=== PATIENT | male | born 1985 | race Caucasian/White ===

== ENCOUNTER 2020-10-03 11:04 | Inpatient (IN) | payer OTHER ==
[2020-10-03] MEDS ORDERED: ONDANSETRON *ODT* 4 MG TABLET SL PRN (14:25)
[2020-10-03] MEDS ORDERED: MAGNESIUM HYDROX 2400MG/30ML ORAL SUSPENSION 30 ML CUP PO PRN (14:25)
[2020-10-03] MEDS ORDERED: ACETAMINOPHEN 325 MG TABLET (FP) PO PRN ×2 (14:25)
[2020-10-03] MEDS ORDERED: MAG HYDROX/AL HYDROX/SIMETH 30 ML UNIT-DOSE CUP PO PRN (14:25)
[2020-10-03] MEDS ORDERED: MAGNESIUM CITRATE 300 ML BOTTLE PO PRN (14:25)
[2020-10-03] MEDS ORDERED: cloNIDine HCL 0.1 MG TABLET PO PRN (14:25)
[2020-10-03] MEDS ORDERED: MENTHOL/PHENOL 1 EACH UD MM PRN (14:25)
[2020-10-03] MEDS ORDERED: BISMUTH SUBSALICYLATE 524 MG/30 ML UD PO PRN (14:25)
[2020-10-03 14:35] VITALS: BMI 24.2
[2020-10-03] MEDS ORDERED: METHADONE HCL 10 MG TABLET (FOR DETOX USE ONLY) PO ONE (16:00)
[2020-10-03] MEDS: IBUPROFEN 400 MG TABLET (FP) PO PRN (17:34)
[2020-10-03] MEDS: diazePAM 5 MG TABLET PO SCH ×2 (18:04→23:34)
[2020-10-03] MEDS: hydrOXYzine PAMOATE 25 MG CAPSULE (FP) PO SCH ×2 (18:05→23:35)
[2020-10-03] MEDS: diazePAM 5 MG TABLET PO PRN (20:00)
[2020-10-03] MEDS ORDERED: MELATONIN 5 MG TABLETS PO SCH (22:00)
[2020-10-03] MEDS: MELATONIN 5 MG TABLETS PO SCH (23:31)
[2020-10-03] MEDS: THIAMINE HCL 100 MG TABLET (FP) PO SCH (23:35)
[2020-10-04] MEDS: diazePAM 5 MG TABLET PO SCH ×4 (06:15→22:53)
[2020-10-04] MEDS: hydrOXYzine PAMOATE 25 MG CAPSULE (FP) PO SCH ×5 (06:15→21:58)
[2020-10-04] MEDS ORDERED: METHADONE HCL 10 MG TABLET (FOR DETOX USE ONLY) ONE (09:46)
[2020-10-04] MEDS ORDERED: METHADONE HCL 5 MG TABLET (FOR DETOX USE ONLY) ONE (09:46)
[2020-10-04] MEDS ORDERED: PRENATAL VITAMINS W/ FOLIC ACID TABLET (FP) PO SCH (10:00)
[2020-10-04] MEDS ORDERED: METHADONE (DETOX) 20 MG, METHADONE (DETOX) 5 MG PO ONE (10:00)
[2020-10-04 10:53] LABS: HEMATOCRIT 36.3 % (35.4-49); HEMOGLOBIN 12.4 GM/dL (11.7-16.9); MCH 29.6 pg (25.7-33.7); MCHC 34.3 g/dl (32.0-35.9); MEAN CELL VOLUME 86.3 fl (80-96); MEAN PLT VOLUME 7.2 fl (7.5-11.1); PLATELET COUNT 185 K/MM3 (134-434); POTASSIUM 4.3 mmol/L (3.5-5.1); RDW 14.1 % (11.9-15.9)
[2020-10-04 10:59] LABS: CALCIUM 8.8 mg/dL (8.5-10.1)
[2020-10-04 11:00] LABS: ALBUMIN 3.2 g/dl (3.4-5.0); BLOOD UREA NITROGEN 22.6 mg/dL (7-18)
[2020-10-04 11:02] LABS: CREATININE 0.9 mg/dL (0.55-1.3)
[2020-10-04 11:04] LABS: TOT PROT 6.5 g/dl (6.4-8.2)
[2020-10-04 11:06] LABS: BILIRUBIN,TOTAL 0.8 mg/dL (0.2-1)
[2020-10-04] MEDS: METHOCARBAMOL 500 MG TABLET PO PRN ×2 (14:40→22:49)
[2020-10-04] MEDS: diazePAM 5 MG TABLET PO PRN ×2 (14:40→22:50)
[2020-10-04] MEDS: IBUPROFEN 400 MG TABLET (FP) PO PRN (18:41)
[2020-10-04] MEDS: THIAMINE HCL 100 MG TABLET (FP) PO SCH (21:58)
[2020-10-04] MEDS: MELATONIN 5 MG TABLETS PO SCH (21:59)
[2020-10-05] MEDS: diazePAM 5 MG TABLET PO PRN (02:50)
[2020-10-05] MEDS: IBUPROFEN 400 MG TABLET (FP) PO PRN (04:21)
[2020-10-05] MEDS: METHOCARBAMOL 500 MG TABLET PO PRN (04:21)
[2020-10-05] MEDS ORDERED: diazePAM 5 MG TABLET PO SCH (06:00)
[2020-10-05] MEDS: hydrOXYzine PAMOATE 25 MG CAPSULE (FP) PO SCH (06:12)
[2020-10-05 07:10] VITALS: BP 102/58; PULSE 54; TEMP 97.6
[2020-10-05] MEDS ORDERED: METHADONE HCL 10 MG TABLET (FOR DETOX USE ONLY) PO ONE (10:00)
[2020-10-05] MEDS ORDERED: FLU VACCINE (FLULAVAL) PF 60 MCG/0.5 ML SYRINGE 2020-2021 IM ONE (12:00)
[2020-10-06] MEDS ORDERED: diazePAM 5 MG TABLET PO SCH (06:00)
[2020-10-06] MEDS ORDERED: METHADONE (DETOX) 10 MG, METHADONE (DETOX) 5 MG PO ONE (10:00)
[2020-10-07] MEDS ORDERED: diazePAM 5 MG TABLET PO ONE (06:00)
[2020-10-07] MEDS ORDERED: METHADONE HCL 10 MG TABLET (FOR DETOX USE ONLY) PO ONE (10:00)
[2020-10-08] MEDS ORDERED: METHADONE HCL 5 MG TABLET (FOR DETOX USE ONLY) PO ONE (06:00)
== END 2020-10-05 09:52 | disposition left against medical advice (07) | DRG 770 ==
LOC: YASAS 11:04 → Y6N 14:35
PROVIDERS: ADMIT Allergy & Immunology; ATTEND Allergy & Immunology
PROC: HZ2ZZZZ Detoxification Services for Substance Abuse Treatment (ICD-10-PCS; principal; 2020-10-03)
DX: F11.23 Opioid dependence with withdrawal (principal); F10.230 Alcohol dependence with withdrawal, uncomplicated; F14.20 Cocaine dependence, uncomplicated; F19.282 Other psychoactive substance dependence with psychoactive substance-induced sleep disorder; F32.9 Major depressive disorder, single episode, unspecified; F41.9 Anxiety disorder, unspecified; F90.9 Attention-deficit hyperactivity disorder, unspecified type; F51.05 Insomnia due to other mental disorder; I10 Essential (primary) hypertension; B18.2 Chronic viral hepatitis C
CPT/HCPCS: 36415; 80053; 85027; 86780; 87389; 93005; 93010; C9803; J0735; U0003